=== PATIENT | female | born 1975 | race Caucasian/White ===

== ENCOUNTER 2017-11-14 07:29 | Emergency (ER) | payer SELFPAY ==
[2017-11-14 08:53] LABS: ALT (SGPT) 16 U/L (8-55); AST (SGOT) 15 U/L (5-34); Albumin 4.4 g/dL (3.5-5.0); Alkaline Phosphatase 33 U/L (40-150); Anion Gap 14 mmol/L (10-20); BUN (Urea Nitrogen) 16 mg/dL (7.0-18.7); Bilirubin, Direct 0.1 mg/dL (0.1-0.3); Bilirubin, Total 0.3 mg/dL (0.2-1.2); Calc. Creatinine Clearance 0 mL/min (70-130); Calcium 9.3 mg/dL (7.8-10.44); Carbon Dioxide 22 mmol/L (22-29); Chloride 107 mmol/L (98-107); Estimated GFR-MDRD Greater than 90; Glucose 107 mg/dL (70-105); Potassium 3.9 mmol/L (3.5-5.1); Protein, Total 7.2 g/dL (6.0-8.3); Sodium 139 mmol/L (136-145)
[2017-11-14 08:55] LABS: #Basophils 0.1 thou/uL (0.0-0.2); #Eosinphils 0.1 thou/uL (0.0-0.7); #Monocytes 0.4 thou/uL (0.11-0.59); #Neutrophils 6.5 thou/uL (1.40-6.50); %Basophils 1.1 % (0.0-1.0); %Lymphocytes 10.9 % (21.0-51.0); %Monocytes 4.9 % (0.0-10.0); %Neutrophils 82.2 % (42.0-75.0); Mean Corpuscular Hemoglobin 23.4 pg (27.0-31.0); Mean Corpuscular Volume 73.1 fL (78.0-98.0); Mean Platelet Volume 8.7 fL (7.4-10.4); Platelet Count 202 thou/uL (130-400); RBC Distribution Width 15.1 % (11.5-14.5); Red Blood Cell (RBC) Count 4.71 mill/uL (4.20-5.40); White Blood Cell (WBC) Count 7.9 thou/uL (4.8-10.8)
[2017-11-14 08:56] LABS: Manual Diff?? YES
[2017-11-14 08:57] LABS: Anisocytosis SLIGHT = 6-15 cells (100X) (0-5/hpf); Lymphocytes 11 % (21-51); Microcytosis SLIGHT = 6-15 cells (100X) (0-5/hpf); Monocytes 5 % (0-10)
[2017-11-14 08:58] LABS: Ovalocytes SLIGHT = 2-5 cells (100X) (0-1/hpf); PLT Morphology Comment Appears Adequate
[2017-11-14] MEDS ORDERED: Iopamidol 370 76% 100 ML VIAL ONE (09:00)
[2017-11-14 09:03] LABS: MDiff Complete? YES
[2017-11-14 09:04] LABS: #Lymphocytes 0.9 thou/uL (1.20-3.40)
[2017-11-14 09:10] LABS: Neutrophil 84 % (42-75)
[2017-11-14 09:15] LABS: Bilirubin Negative (Negative); Blood, Urine Negative (Negative); Clarity Slightly Cloudy (Clear); Glucose, Urine (Dipstick) Negative (Negative); Leukocyte Negative (Negative); Nitrite Negative (Negative); Pregnancy Test - Urine (BHCG) Negative (Negative); Pregu Control Background? CLEAR/WHITE (CLR/WHITE); Pregu Control Bar Appear? YES (CONTROL BAR); Protein, Urine (Dipstick) Negative (Neg-Trace); Specific Gravity 1.025 (1.002-1.036); Specific Gravity, Urine 1.025 (1.005-1.030); Urobilinogen 0.2 mg/dL (0.2-1.0)
[2017-11-14] MEDS ORDERED: Ketorolac Tromethamine 30 MG/ML VIAL ONE (10:25)
--- NOTE | 2017-11-14 10:39 | CT ---
CT ABDOMEN AND PELVIS WITH IV CONTRAST: History: Lower abdomen pain. FINDINGS: Lung bases are clear. The liver, spleen, kidneys, adrenal glands, and pancreas have a normal CT appea seth. Urinary bladder is unremarkable. Physiologic amount of free fluid within the pelvis. Fluid within the right lower quadrant surrounds a right adnexa and cecal base. Lack of oral contrast limits evaluation of the bowel. No evidence of obstruction. Tubular structure p rojecting medially from the base of the cecum is favored to represent a noninflamed appendix. IMPRESSION: Right lower quadrant fluid favored to be related to the right adnexa. Clinical correlation regarding other signs and symptoms of right adnexal pathology is required. Cause is not evident. If clinical sy mptoms warrant, pelvic sonogram would be used for further evaluation. POS: [facility]
== END 2017-11-14 10:35 | disposition home or self-care (01) ==
LOC: SCSER 07:29
DX: R10.32 Left lower quadrant pain (principal); R10.31 Right lower quadrant pain
CPT/HCPCS: 74177; 80048; 80076; 81003; 81025; 83690; 85025; 96372; 96374; J1885